=== PATIENT | male | born 1970 | race Caucasian/White ===

== ENCOUNTER 2022-02-26 06:00 | Emergency (ER) | payer OTHER, MEDICAID, SELFPAY ==
--- NOTE | 2022-02-26 06:08 | ED_ITS ---
HPI - Back Pain/Injury General Chief Complaint: Back Pain/Injury Stated Complaint: lower back and rt leg hurting Time Seen by Provider: 02/26/22 06:08 History of Present Illness HPI Narrative: 51-year-old male with noncontributory medical history presents with a chief complaint of gradually worsening low back pain with radiation down his right leg over the past few days. He did not have any traumatic event but states his pain started in the aftermath of lifting a heavy desk. His pain is worse when he moves and improves with rest. It is sharp and stabbing and radiates down his right leg. He denies numbness, tingling, weakness or footdrop. He denies loss of control of bowel or bladder. He denies any fever or chills and does not take any blood thinners. He is otherwise well and free of complaint. Related Data Previous Rx's Medication Instructions Recorded cyclobenzaprine 10 mg tablet 10 mg PO TID PRN #14 tab 02/26/22 gabapentin 300 mg capsule 300 mg PO BEDTIME #14 cap 02/26/22 hydrocodone 5 mg-acetaminophen 325 1 tab PO Q4-6H PRN #10 tab 02/26/22 mg tablet ketorolac 10 mg tablet 10 mg PO Q6H PRN #14 tab 02/26/22 methylprednisolone 4 mg tablets in See Rx Instructions .ROUTE 02/26/22 a dose pack (Medrol ([place])) .COMPLEX #21 ea Review of Systems Review of Systems Narrative: GENERAL: Denies chills, fatigue, malaise, fever, sweats. HEENT: Denies sinus pain, ear pain, sore throat, difficulty swallowing, dizziness. RESPIRATORY: Denies dyspnea, cough, wheezing, hemoptysis, sputum. CARDIOVASCULAR: Denies chest pain, palpitations, orthopnea, edema, GASTROINTESTINAL: Denies nausea, vomiting, abdominal pain, diarrhea, constipation, melena. : Denies dysuria, frequency, incontinence, hematuria, urinary retention. MUSCULOSKELETAL: See HPI SKIN: Denies rash, skin lesions, or other NEUROLOGIC: Denies weakness, headache, numbness, change in speech, confusion, seizures, incoordination. PSYCHIATRIC: No concerning psychosocial issues. 12 point review of systems is negative except for those stated above Patient History Social History Smoking Status: Unknown if ever smoked Exam Narrative Exam Narrative: GENERAL: [51] year old patient appears stated age. Well-developed patient, in mild distress. HEAD: Atraumatic. Normocephalic. EYES: Pupils equal round and reactive. Extraocular motions intact. No scleral icterus. No injection or drainage. ENT: Nose without bleeding, purulent drainage. Throat without erythema, tonsillar hypertrophy or exudate. Airway patent. NECK: Trachea midline. Non tender CARDIOVASCULAR: Regular rate and rhythm without murmurs, gallops, or rubs. RESPIRATORY: Clear to auscultation. Breath sounds equal bilaterally. No wheezes, rales, or rhonchi. GASTROINTESTINAL: Abdomen soft, non-tender, nondistended. EXTREMITIES: No edema or joint tenderness. BACK: churn tender but free of any obvious external abnormalities. Patient exam notes decreased range of motion and muscle spasm, but no CVA tenderness, or vertebral point tenderness. There are no symptoms of cauda equina such as saddle anesthesia, and decreased reflexes, decreased sensation or strength. NEURO: AOx3. SKIN: No rash or erythema of visible areas Initial Vital Signs Initial Vital Signs: Vital Signs Temperature 97.8 F 02/26/22 06:15 Pulse Rate 78 02/26/22 06:15 Respiratory Rate 17 02/26/22 06:15 Blood Pressure 132/78 02/26/22 06:15 Pulse Oximetry 98 02/26/22 06:15 Course Orders Ordered: Discontinued Medications Hydrocodone Bitart/Acetaminophen (Hydrocodone/Acet 5/325 Prepack) 1 bottle MISC SEEINSTR ONE Stop: 02/26/22 06:37 Last Admin: 02/26/22 06:51 Dose: 1 bottle Documented by: KAYLYN Cyclobenzaprine HCl (Cyclobenzaprine 10 Mg Prepack) 1 bottle MISC SEEINSTR ONE Stop: 02/26/22 06:37 Last Admin: 02/26/22 06:51 Dose: 1 bottle Documented by: KAYLYN Gabapentin (Gabapentin 300 Mg Capsule) 300 mg PO NOW ONE Stop: 02/26/22 06:37 Last Admin: 02/26/22 06:50 Dose: 300 mg Documented by: KAYLYN Ketorolac Tromethamine (Ketorolac 30 Mg/Ml Vial) 30 mg IM NOW ONE Stop: 02/26/22 06:37 Last Admin: 02/26/22 06:50 Dose: 30 mg Documented by: KAYLYN Prednisone (Prednisone 20 Mg Tablet) 40 mg PO NOW ONE Stop: 02/26/22 06:37 Last Admin: 02/26/22 06:51 Dose: 40 mg Documented by: KAYLYN Vital Signs Vital signs: Vital Signs - 8 hr 02/26/22 06:15 Temperature 97.8 F Pulse Rate 78 Respiratory Rate 17 Blood Pressure 132/78 Pulse Oximetry 98 [facility] - Back Pain/Injury Imaging Data Lumbar Xray: Radiologist's Impression: Launch?[place] [address] XRay Report Signed Patient: Landon Key MR#: [id number] : 1970 Acct:[id number] Age/Sex: 51 / M Date of Service: 02/26/22 Loc: ED Accession Number: [id number] ?? Procedure: XR lumbar spine 2-3V Ordering Provider: Salas Webb D.O. PROCEDURE:? XR LUMBAR SPINE 2-3V ? INDICATIONS:? severe lumbar pain ? TECHNIQUE:? 3 views of the lumbar spine were acquired.? ? COMPARISON:? None. ? FINDINGS:? ? Bones:? 5 [id number] vertebrae are present.? There is mild, approximately 4 millimeters of L2-L3 and L3-L4 retrolisthesis and 2 millimeters of L1-L2 retrolisthesis.? No vertebral body compression fractures.? No suspicious bony lesions.? Mild multilevel degenerative disc disease.? Mild lower lumbar spine facet hypertrophy. ? Soft tissues:? Overlying bowel gas pattern is normal.? No suspicious soft tissue calcifications.? ? ? IMPRESSION:? ? 1. Multilevel degenerative disc disease. ? 2. Multilevel facet arthropathy. ? 3. No fracture. No acute osseous lesion. If symptoms and/or clinical suspicion for pathology persists, evaluation with MRI should be considered for further assessment. ? ? ? Dictated by: Angela Mills MD, PhD on 02/26/2022 at 8:41 ? ? Approved by: Angela Mills MD, PhD on 02/26/2022 at 8:42? [facility] Narrative Medical decision making narrative: Multiple etiologies of back pain considered including; Epidural abscess, cauda equina, mass occupying lesion, and other considered however no red flags suggestive of neurosurgical emergency are present. Discharge Plan Departure Patient Disposition: Home Clinical Impression: Acute right lumbar radiculopathy Instructions: DI for Lumbar Radiculopathy Activity Restrictions/Additional Instructions: *You have been diagnosed with [lumbar radiculopathy without evidence of cauda equina or spinal cord involvement. *What to do: *Please continue to take your regular medications as directed. [x ] New medication prescriptions sent to your pharmacy: [[facility] ] [ ] New medication written as a paper prescription [ ] No new medications given *Please follow up with your primary care provider in 2-3 days, call for an appointment. Let them know you were seen in the Emergency Department and that we ask that you be seen in follow up. We will electronically transmit a record of today's note if your PCP is in our system *If you do not have a primary care provider please contact the [facility] Resource line at [phone]. They will ask some questions about your medical history and help get you set up with a doctor in the community. * additionally, as we discussed I have included contact information for each of the two ?back specialists ?that work here at [facility] *Return to Emergency Department if you should have any new, worsening or concerning symptoms, such as [fever greater than 101 F, shaking chills, worsening pain, loss of control of bowel/bladder, leg weakness or other bothersome symptoms Prescriptions: New cyclobenzaprine 10 mg tablet 10 mg PO TID PRN (Reason: muscle spasm) Qty: 14 0RF hydrocodone-acetaminophen 5-325 mg tablet 1 tab PO Q4-6H PRN (Reason: pain) Qty: 10 0RF ketorolac 10 mg tablet 10 mg PO Q6H PRN (Reason: pain) Qty: 14 0RF gabapentin 300 mg capsule 300 mg PO BEDTIME Qty: 14 0RF methylprednisolone [Medrol ([place])] 4 mg tablets,dose pack See Rx Instructions .ROUTE .COMPLEX Qty: 21 0RF Rx Instructions: orally per package directions Referrals: Hemant Hendricks DO [Physician] - Lior Franklin MD [Physician] -
[2022-02-26 06:15] VITALS: BP 132/78; PULSE 78; RESP 17; TEMP 36.6; O2SAT 98; BMI 26.4
--- NOTE | 2022-02-26 06:36 | DI.RAD.S_ITS ---
PROCEDURE: XR LUMBAR SPINE 2-3V INDICATIONS: severe lumbar pain TECHNIQUE: 3 views of the lumbar spine were acquired. COMPARISON: None. FINDINGS: Bones: 5 [id number] vertebrae are present. There is mild, approximately 4 millimeters of L2-L3 and L3-L4 retrolisthesis and 2 millimeters of L1-L2 retrolisthesis. No vertebral body compression fractures. No suspicious bony lesions. Mild multilevel degenerative disc disease. Mild lower lumbar spine facet hypertrophy. Soft tissues: Overlying bowel gas pattern is normal. No suspicious soft tissue calcifications. IMPRESSION: 1. Multilevel degenerative disc disease. 2. Multilevel facet arthropathy. 3. No fracture. No acute osseous lesion. If symptoms and/or clinical suspicion for pathology persists, evaluation with MRI should be considered for further assessment. Dictated by: Angela Mills MD, PhD on 02/26/2022 at 8:41 Approved by: Angela Mills MD, PhD on 02/26/2022 at 8:42
[2022-02-26] MEDS: GABAPENTIN 300 MG CAPSULE PO (06:50)
[2022-02-26] MEDS: KETOROLAC 30 MG/ML VIAL IM (06:50)
[2022-02-26] MEDS: HYDROCODONE/ACET 5/325 PREPACK 1 BOTTLE MISC (06:51)
[2022-02-26] MEDS: predniSONE 20 MG TABLET 40 MG PO (06:51)
[2022-02-26] MEDS: CYCLOBENZAPRINE 10 MG PREPACK 1 BOTTLE MISC (06:51)
[2022-02-26 08:49] VITALS: BP 123/81; PULSE 71; RESP 18; O2SAT 100
== END 2022-02-26 08:50 | disposition home or self-care (01) ==
PROVIDERS: Emergency Provider Emergency Medicine
DX: M54.16 Radiculopathy, lumbar region (principal)
CPT/HCPCS: 72100; 96372; 99283; J1885

== ENCOUNTER 2022-05-27 20:58 | Emergency (ER) | payer OTHER, MEDICAID, SELFPAY ==
[2022-05-27 21:08] VITALS: BP 106/57; PULSE 74; RESP 20; TEMP 36.7; O2SAT 98
[2022-05-28 01:41] VITALS: BP 119/82; PULSE 69; RESP 20; O2SAT 100
--- NOTE | 2022-05-28 02:32 | ED.WOUNDLAC ---
HPI - Wound/Laceration General Chief Complaint: Wound/Laceration Stated Complaint: RIGHT FOOT INJURY Time Seen by Provider: 05/28/22 02:32 Source: patient Mode of arrival: Ambulatory History of Present Illness HPI narrative: 51-year-old gentleman without significant medical history presents after stepping on a glass breaking it and suffering a 3 cm laceration to the ball of his right foot. Was cleaned well in the emergency department. He feels like all of the glass is out of the wound. He notes that he is up-to-date on his tetanus. This is an area of his foot where he has had prior tendon surgery and so the ball of his foot in his great toe has been numb for a number of years. Related Data Previous Rx's Medication Instructions Recorded cyclobenzaprine 10 mg tablet 10 mg PO TID PRN muscle spasm #14 02/26/22 tabs gabapentin 300 mg capsule 300 mg PO BEDTIME #14 caps 02/26/22 hydrocodone 5 mg-acetaminophen 325 1 tab PO Q4-6H PRN pain #10 tabs 02/26/22 mg tablet ketorolac 10 mg tablet 10 mg PO Q6H PRN pain #14 tabs 02/26/22 methylprednisolone 4 mg tablets in See Rx Instructions PO .COMPLEX 02/26/22 a dose pack (Medrol ([place])) #21 ea cephalexin 500 mg capsule 500 mg PO TID #15 caps 05/28/22 Allergies Allergy/AdvReac Type Severity Reaction Status Date / Time No Known Drug Allergies Allergy Verified 05/27/22 21:09 Review of Systems Review of Systems Narrative: Remainder of complete review of systems is otherwise unremarkable except for that included in the HPI. Patient History Social History Smoking Status: Unknown if ever smoked Smoking Status: Unknown if ever smoked alcohol intake frequency: holidays/special occasions only Exam Initial Vital Signs Initial Vital Signs: Vital Signs Temperature 98.1 F 05/27/22 21:08 Pulse Rate 74 05/27/22 21:08 Respiratory Rate 20 05/27/22 21:08 Blood Pressure 106/57 L 05/27/22 21:08 Pulse Oximetry 98 05/27/22 21:08 Oxygen Delivery Method 05/27/22 21:08 General: Alert appropriate in no acute distress Respiratory: Able to speak in full sentences, no obvious respiratory distress Skin: No obvious rashes, warm and dry Neurologic: Grossly intact no obvious asymmetries or abnormalities Psych: appropriate insight and affect, cooperative Extremity: 3 cm shallow linear laceration into the ball of the right foot with bleeding controlled. He is at his neurovascular baseline with the great toe being numb at baseline. He does have significant onychomycosis of most of the nails of his right foot. Course Vital Signs Vital signs: Vital Signs - 8 hr 05/27/22 21:08 05/28/22 01:41 Temperature 98.1 F Pulse Rate 74 69 Respiratory Rate 20 20 Blood Pressure 106/57 L 119/82 Pulse Oximetry 98 100 Oxygen Delivery Method Room Air Room Air MDM - Wound/Laceration MDM Narrative Medical decision making narrative: 51-year-old gentleman stepped on the glass broke small laceration to the bottom his foot that is clean it is closely approximated with minimal intervention. Steri-Strips and glue used to reapproximate. He states he is up-to-date on tetanus. He is given a prescription for Keflex to begin only if her signs and symptoms of infection. He is not diabetic and has good blood flow to his lower extremities. Questions are answered he is safe for home discharge Discharge Plan Departure Patient Disposition: Home Clinical Impression: Laceration Instructions: DI for Laceration Repair Activity Restrictions/Additional Instructions: Thank you for coming in tonight There does not appear to be any retained glass in the wound on your foot. And is actually holding together nicely and I have used skin glue to hold the edges together and then 2 large Steri-Strips to give a bit of extra support. I do not think that you need stitches tonight. Please try to keep the dressings clean and dry as possible. If you notice increasing redness, drainage or pain please start the antibiotics. If it continues to worsen after that you need to be seen and re-evaluated. As long and it continues to heal you do not need to start the antibiotics Prescriptions: New cephalexin 500 mg capsule 500 mg PO TID Qty: 15 0RF No Action cyclobenzaprine 10 mg tablet 10 mg PO TID PRN (Reason: muscle spasm) Qty: 14 0RF hydrocodone-acetaminophen 5-325 mg tablet 1 tab PO Q4-6H PRN (Reason: pain) Qty: 10 0RF ketorolac 10 mg tablet 10 mg PO Q6H PRN (Reason: pain) Qty: 14 0RF gabapentin 300 mg capsule 300 mg PO BEDTIME Qty: 14 0RF methylprednisolone [Medrol ([place])] 4 mg tablets,dose pack See Rx Instructions .ROUTE .COMPLEX Qty: 21 0RF Rx Instructions: orally per package directions
[2022-05-28] MEDS: BACITRACIN OINT 0.9 GM PCKT 5 APPLIC TOP (02:55)
== END 2022-05-28 03:04 | disposition home or self-care (01) ==
PROVIDERS: Emergency Provider Emergency Medicine
DX: S91.311A Laceration without foreign body, right foot, initial encounter (principal); W25.XXXA Contact with sharp glass, initial encounter
CPT/HCPCS: 99282

== ENCOUNTER 2023-01-11 17:03 | Emergency (ER) | payer OTHER, MEDICAID, SELFPAY ==
[2023-01-11 17:37] VITALS: BP 127/85; PULSE 65; RESP 18; TEMP 36.6; O2SAT 100; BMI 26.4
--- NOTE | 2023-01-11 17:48 | DI.CT.S_ITS ---
PROCEDURE: CT HEAD/BRAIN WO CON INDICATIONS: pain TECHNIQUE: Noncontrast 4.5 mm thick angled axial sections acquired from the foramen magnum to the vertex, with coronal and sagittal reformats. For radiation dose reduction, the following was used: automated exposure control, adjustment of mA and/or kV according to patient size. COMPARISON: None. FINDINGS: Image quality: Excellent. CSF spaces: Basal cisterns are patent. No extra-axial fluid collections. Ventricles are normal in size and shape. Brain: No midline shift. No intracranial masses or hemorrhage. Olguin-white matter interface is normal. Skull and face: Calvarium and visualized facial bones are intact, without suspicious lesions. Sinuses: Visualized sinuses and mastoids are clear. IMPRESSION: Unremarkable CT brain. Intracranial hemorrhage or mass effect Approved by: Davion Moncada M.D. on 01/11/2023 at 17:46
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
== END 2023-01-11 19:30 | disposition left against medical advice (07) ==
PROVIDERS: Emergency Provider Emergency Medicine
DX: S09.90XA Unspecified injury of head, initial encounter (principal); M54.2 Cervicalgia; V89.2XXA Person injured in unspecified motor-vehicle accident, traffic, initial encounter
CPT/HCPCS: 70450; 72125; 99283